=== PATIENT | male | born 1980 | race Caucasian/White ===

== ENCOUNTER 2024-04-09 09:30 | Outpatient (RCR) | payer OTHER, SELFPAY ==
--- NOTE | 2024-04-09 16:57 | OT.OPODN ---
OT Outpatient Ortho Daily Note OT Outpatient Ortho Daily Note* Start: 03/05/24 12:47 Freq: Status: Active Protocol: Document 04/09/24 16:47 LCN (Rec: 04/09/24 16:56 LCN [id number]) E-signed By Abbie Vann, OTR/L, CLT Type of Note Type of Note Type of Note Daily Note,Discharge Note,Note to MD Visit Number 6 Insurance Information Insurance Information [employer] Outpatient History/Precautions Current Condition/Medical Diagnosis Referring Provider Riley Diaz PA-C Medical Diagnoses S63.639A Sprain of IPJ of RUE SF S69.91XA Unspecified injury of the RUE hand / fingers Treatment Diagnosis M25.641 Stiffness of the RUE SF Date of Onset 01/29/24 Medical Conditions Depression Other Conditions PMH also includes seasonal allergies, sinus surgery in 2013, vein surgery 2021, and remote hx of LUE finger fractures in childhood. Medical/Functional History Medical History Reviewed Yes Prior Level of Function/Mobility Full, pain-free use of his RUE , no limitations due to stiffness or weakness. 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 , very helpful. Amanda still bracing some w OVAL-8 and doing putty intrinsic ex is helpful. Still working on last 2-3 degrees of terminal extension of L SF. Pain Assessment Pain Pain No Pain Comments Pt denies any pain, states he feels stretching when he straightens it, but it's not painful. OT OP Daily Ortho Note/Assessment Therapeutic Exercise Therapeutic Exercise Comments 03/26/24-- Reviewed HEP, added SF traction with PIP /DIP blocking for opening capsule during SROM, returns w good technique. 03/14/24-- REfining not terminal EX holds in table top, 5 sec holds x 5 reps. Turquoise medium putty for digit adduction, poke and extension , hook flexion. 03/07/24-- Added terminal extension holds of L SF PIP jt and hooked flexion with MCP hyper extension. Encouraging 3 -5 reps of 10 sec holds each for PROM followed by AROM holds 10 sec holds, x 3-5 reps each. Pen hops/digit abd/add with TE of SF x 20 reps. 03/05/24 Provided training and practice in differential tendon glides and blocked PIP and DIP AROM, also issued a compression sleeve to be worn under his Oval 8 splint for edema reduction. Following demo of exs, pt is able to complete exs with minimal cues . Pt was provided with written instructions for use at home as well. Trial of RMO in clinic, however, pt had better results with manual stabilization. Manual Therapy Manual Therapy Minutes (minutes) 24 Manual Therapy Comments IASTM with Graston #6 for MCP, PIP and DIP w reduced lateral thickness of tissue texture noted. Blanches at lateral slips of PIP during hooked flexion. Provided MT with focus on RUE SF PIPJ mobilizations and AAROM to promote PIP extension. Lacked 0 PIP extension ( in table top ) at end of session. 5.9 cm edema at SF/PIP. Ultrasound Ultrasound Minutes (minutes) 8 Ultrasound Location & Joint Position Provided US to the RUE SF for anti-inflammatory and circulatory benefit. Ultrasound Frequency & Mode 3 MHz Continuous Intensity (w/cm2) 1.4 Total Occupational Therapy Time Occupational Therapy Minutes 32 Home Program Home Program Home Program Revised Home Program Specifics 04/02/24-- self IASTM 03/16/24-- Terminal E DP/PIP of R SF SROM with tractioning. Reduce oval -8 to noc wear only, gel sleeve as necessary. 03/14/24-- Turq putty, adduction, TE of PIP poke and push, hooked flexion 03/07/24-- terminal extension holds of L SF PIP jt and hooked flexion with MCP hyper extension, pen hops 03/05/24 Provided training and practice in differential tendon glides and blocked PIP and DIP AROM, also issued a compression sleeve to be worn under his Oval 8 splint for edema reduction. Following demo of exs, pt is able to complete exs with minimal cues . Pt was provided with written instructions for use at home as well. Trial of RMO in clinic, however, pt had better results with manual stabilization. Goniometric Comments Goniometric Comments Goniometric Comments 04/09/24--Edema at R PIP to 6. 0cm and AAROM to 0 TE fo PIP jt at end of session, lacks 2- 3 degrees at start. 03/14/24--Lacking 5-7 PIP extension at end of session. 6 .1 cm edema at SF/PIP. 03/07/24-- Edema at R PIP to 6. 1cm and AAROM to -7 TE fo PIP jt, AROM to -8 degrees after session 03/05/24 Pt demonstrates full AROM and strength throughout BUE with the exception of the RUE SF PIPJ. Prior to treatment today, AROM of the RUE SF PIPJ was -20 deg of extension to full flexion, following treatment today, AROM of -12 deg of extension. Hand Pinch/[employer] Sales Associate Strength Hand Pinch/[employer]ail [employer] Sales Associate Strength Hand Pinch/[employer] Sales Associate Strength Left Hand,Right Hand Left Hand [employer] Sales Associate Strength Position 1 in Elbow 97 Flexion (lbs) Lateral Pinch Strength (lbs) 22 Three Point Pinch (lbs) 18 Right Hand [employer] Sales Associate Strength Position 1 in Elbow 104 Flexion (lbs) Lateral Pinch Strength (lbs) 26 Three Point Pinch (lbs) 22 Comments Comments 03/05/24 Pt denies any pain with strength testing. OT Objective Data Hand Hand Dominance Right Skin/Wounds/Edema Comments 03/05/24 Significant swelling is appreciated at the RUE SF PIPJ. Circumferential measurements were taken of the RUE PIPJ and compared to the LUE. RUE = 6.5cm, LUE = 5.8cm . OT Problems Problems Problems Decreased Range of Motion, Other Problems Comments Swelling at RUE SF PIPJ Other Problems Computer Patient Potential Good Assessment Assessment Assessment Pt has less fluctuation of edema in digit between day and night time, comes down with brace at night. Increased focus on more HEP sessions per day has been reducing the stiffness. Steady progress in OT, likely d/c after today but does see PA next week. (Pt used his approved 6 visits) Pt is a very pleasant 44yo male with swelling and limited AROM of the RUE SF PIPJ. Pt denies pain but does occasionally have difficulty with typing / reaching certain keys on the keyboard and is afraid if he does not regain full ROM of this joint that it could get worse over time and it is his dominant hand. Pt did respond well to treatment today, prior to treatment, AROM of the RUE SF PIPJ was - 20 deg of extension to full flexion, following treatment today, AROM of -12 deg of extension. Pt will benefit from skilled OT intervention to address swelling and joint stiffness in the RUE SF in order to restore full ROM / joint mobility to prevent further joint deformity / injury. Occupational Therapy Treatment Plan - OP Potential Rehabilitation Potential Good Set Goals Goals Set with Patient Yes Goals Goals GOAL PROGRESS 04/09/24-- 1. Pt will be independent and compliant with HEP in order to resume full, pain-free use of the involved UE. 2 weeks ---- GOAL MET 2. Pt will demonstrate decreased circumferential measurement of the RUE SF PIPJ to 6cm or less to allow for improved joint mobility in order to restore ROM / function at this joint. ---- GOAL MET 3. Pt will demonstrate full PIPJ extension of the RUE SF in order to improve ability to reach all keys on keyboard without difficulty and to prevent contracture / further deformity. 04/09/24---- GOAL MET Target Date 05/05/24 Treatment Plan Treatment Plan Evaluation,Edema Control,Joint Mobilization,Manual Therapy, Ultrasound,Therapeutic Exercise,Therapeutic Activities,Self Care/Home Management,Education Expected Frequency 1-2x Week Expected Duration 6-8 Weeks Occupational Therapy Billing Units Treatment Minutes Timed Treatment Minutes 32 Total Treatment Minutes 32 Billing Units Manual Therapy 2 Ultrasound 1 Certification Statement Certification Statement I Certify That: Therapy Services Provided, Therapy Plan Established, Therapy Plan Reviewed Discharge Note Discharge Note Discharge Summary Goal progress per above. Date of First Visit for Therapy 03/05/24 Date of Last Visit for Therapy 04/09/24 Initial Primary Functional Limitations/ Pt states that on 01/29/24 he Concerns was caring a box of crutches, the box slipped, and his hand hit undersurface of a table he had immediate pain in his left small finger. Pain was limited to PIP joint. Pt states he did have swelling but not really any bruising, no disfiguration of the finger . He continued to work as her really didn't think anything was wrong with it. As time went on, the swelling improved some, but he decided he should have it checked out when he realized he wasn't able to fully straighten his finger. Pt was seen in ortho and had x-rays that were negative for a fracture. t was given an Oval 8 splint to straighten the PIPJ, seems to have helped some, states it's comfortable and he is able to wear it most of the time, removes it occasionally for ROM and to type. Of note, pt states he also injured this finger while playing basketball last winter. Pt states he jammed his finger against a BB, he felt pain, and noted the finger was angulated, when he brought his hand back down, the finger was straight. There was swelling and flexion at the PIP joint after this injury, which eventually resolved. Pt states he never had any issues with it until the incident on 01/29/24. Pt denies any pain today, states he pretty much uses his hand like normal. Due to limited extension of PIPJ, pt does occasionally have difficulty with typing / reaching keys. Interventions Provided During Treatment Evaluation,Edema Control,Joint Mobilization,Manual Therapy, Splinting,Ultrasound, Therapeutic Exercise,Education Recommendations/Reason for Discharge Met All Therapy Goals
== END 2024-08-07 23:59 | disposition home or self-care (01) ==
PROVIDERS: Visit Provider Physician Assistant Surgical
DX: S63.639A Sprain of interphalangeal joint of unspecified finger, initial encounter (principal); S69.91XA Unspecified injury of right wrist, hand and finger(s), initial encounter; M25.641 Stiffness of right hand, not elsewhere classified; Z51.89 Encounter for other specified aftercare
CPT/HCPCS: 97035; 97110; 97140; 97165; X5282